=== PATIENT | male | born 1995 | race African-American/Black ===

== ENCOUNTER 2020-01-17 06:36 | Emergency (ER) | payer SELFPAY ==
[~2020-01-17] VITALS: Ht 182.9 cm; Wt 83.9 kg
--- NOTE | 2020-01-17 06:42 | Emergency Room Report ---
History of Present Illness General Chief Complaint: Vomiting Source: Patient Present Illness HPI 24-year-old male with history of cannabinoid hyperemesis syndrome here with hyperemesis. Patient says that he smokes marijuana daily. Says that he has been smoking marijuana knowing that it causes frequent vomiting but is continue to smoke anyway. He has been vomiting many times per day over the past 3 days. He is also experiencing diffuse moderate abdominal pain that is nonfocal. He says that this is usual for his normal cannabinoid hyperemesis syndrome flares. Says pain is 10 out of 10 in intensity and located diffusely and does not otherwise radiate. No headache, vision change, fevers, chills, syncope, presyncope, chest pain, palpitation, shortness of breath, back pain, diarrhea, dysuria. Allergies: Coded Allergies: No Known Allergies (Unverified , 01/17/20) COVID-19 Screening Contact w/high risk pt: No Experienced COVID-19 symptoms?: No COVID-19 Testing performed VULCANIZER: Yes - NOVEMBER 2019 COVID-19 Screening: Negative COVID-19 COVID-19 Testing Source: [facility] Nursing Documentation-[facility] Past Medical History: No History, Except For Hx Gastrointestinal Problems: Yes Review of Systems All Other Systems: negative except mentioned in HPI Physical Exam Vital Signs Date Time Temp Pulse Resp B/P (MAP) Pulse Ox O2 Delivery O2 Flow Rate FiO2 01/17/20 06:33 98.6 100 18 138/88 (105) 99 Room Air Sp02 EP Interpretation: reviewed, normal General Appearance: no apparent distress, alert, non-toxic Head: normocephalic, atraumatic Eyes: bilateral eye normal inspection, bilateral eye PERRL ENT: hearing grossly normal, normal pharynx, no angioedema, normal voice Neck: full range of motion, supple/symm/no masses Respiratory: chest non-tender, lungs clear, normal breath sounds, speaking full sentences Cardiovascular #1: regular rate, rhythm, no edema Cardiovascular #2: 2+ carotid (R), 2+ carotid (L), 2+ radial (R), 2+ radial (L), 2+ dorsalis pedis (R), 2+ dorsalis pedis (L) Gastrointestinal: normal bowel sounds, soft, non-distended, no guarding, no rebound, other - Mild diffuse abdominal tenderness on palpation without any rebound or guarding. Negative Rovsing sign, negative Lux sign Rectal: deferred Genitourinary: normal inspection, no CVA tenderness Musculoskeletal: back normal, normal range of motion, calf tenderness, gait/station normal, non-tender Neurologic: alert, motor strength/tone normal, oriented x3, sensory intact, responsive, speech normal Psychiatric: judgement/insight normal, memory normal, mood/affect normal, no suicidal/homicidal ideation Reflexes: 3+ bicep (R), 3+ bicep (L), 3+ tricep (R), 3+ tricep (L), 3+ knee (R), 3+ knee (L) Lymphatic: no adenopathy Medical Decision Making Diagnostic Impression: Primary Impression: Cannabinoid hyperemesis syndrome Additional Impression: Vomiting ER Course Laboratory Tests Test 01/17/20 06:45 White Blood Count 11.5 K/UL (4.8-10.8) H Red Blood Count 5.27 M/UL (4.70-6.10) Hemoglobin 14.8 G/DL (14.2-18.0) Hematocrit 41.8 % (42.0-52.0) L Mean Corpuscular Volume 79 FL (80-99) L Mean Corpuscular Hemoglobin 28.1 PG (27.0-31.0) Mean Corpuscular Hemoglobin Concent 35.4 G/DL (32.0-36.0) Red Cell Distribution Width 12.7 % (11.6-14.8) Platelet Count 204 K/UL (150-450) Mean Platelet Volume 11.1 FL (6.5-10.1) H Neutrophils (%) (Auto) 80.1 % (45.0-75.0) H Lymphocytes (%) (Auto) 14.2 % (20.0-45.0) L Monocytes (%) (Auto) 4.8 % (1.0-10.0) Eosinophils (%) (Auto) 0.1 % (0.0-3.0) Basophils (%) (Auto) 0.8 % (0.0-2.0) Sodium Level 140 MMOL/L (136-145) Potassium Level 3.2 MMOL/L (3.5-5.1) L Chloride Level 103 MMOL/L (98-107) Carbon Dioxide Level 28 MMOL/L (21-32) Anion Gap 9 mmol/L (5-15) Blood Urea Nitrogen 18 mg/dL (7-18) Creatinine 1.1 MG/DL (0.55-1.30) Estimated Glomerular Filtration Rate > 60 mL/min (>60) Glucose Level 114 MG/DL (74-106) H Calcium Level 9.6 MG/DL (8.5-10.1) Total Bilirubin 0.6 MG/DL (0.2-1.0) Aspartate Amino Transferase (AST) 21 U/L (15-37) Alanine Aminotransferase (ALT) 35 U/L (12-78) Alkaline Phosphatase 64 U/L (46-116) Total Protein 8.5 G/DL (6.4-8.2) H Albumin 4.5 G/DL (3.4-5.0) Globulin 4.0 g/dL Albumin/Globulin Ratio 1.1 (1.0-2.7) Lipase 78 U/L (73-393) 24-year-old male here with vomiting. Patient says that he is a heavy marijuana smoker and says that he has cannabinoid hyperemesis syndrome. He was advised multiple times to abstain from smoking marijuana. Patient was hemodynamically stable and had a largely benign physical examination. CBC unremarkable. CMP showed mild hypokalemia with a potassium of 3.4. Potassium was repleted in the emergency department. He was given 2 L of IV normal saline and 4 mg of Zofran IV. He had resolution of his symptoms. He was tolerating p.o. in the emergency department. He was given a prescription for Zofran and told to follow-up with his primary care provider. Discharged in stable condition. Last Vital Signs Date Time Temp Pulse Resp B/P (MAP) Pulse Ox O2 Delivery O2 Flow Rate FiO2 01/17/20 06:33 98.6 100 18 138/88 (105) 99 Room Air Scripts Ondansetron Odt* (ZOFRAN ODT*) 8 Mg Tab.rapdis 8 MG ORAL Q6H PRN for Nausea & Vomiting, #12 TAB Prov: Aquilino Merritt M.D. 01/17/20 Aquilino Merritt M.D. Jan 17, 2020 06:42
[2020-01-17] MEDS ORDERED: Capsaicin 0.075% Cream TOPIC SCH (06:45)
[2020-01-17 06:50] VITALS: BP 117/79
[2020-01-17 07:31] LABS: ANION GAP 9 mmol/L (5-15); BLOOD UREA NITROGEN 18 mg/dL (7-18); CALCIUM 9.6 MG/DL (8.5-10.1); CARBON DIOXIDE 28 MMOL/L (21-32); CHLORIDE 103 MMOL/L (98-107); CREATININE 1.1 MG/DL (0.55-1.30); POTASSIUM 3.2 MMOL/L (3.5-5.1); SODIUM 140 MMOL/L (136-145)
[2020-01-17 07:35] LABS: ALANINE AMINOTRANSFERASE 35 U/L (12-78); ALBUMIN 4.5 G/DL (3.4-5.0); ALBUMIN/GLOBULIN RATIO 1.1 (1.0-2.7); ALKALINE PHOSPHATASE 64 U/L (46-116); ASPARTATE AMINO TRANSFERASE 21 U/L (15-37); BILIRUBIN,TOTAL 0.6 MG/DL (0.2-1.0)
[2020-01-17 07:43] LABS: BASOPHILS % (AUTO) 0.8 % (0.0-2.0); EOSINOPHILS % (AUTO) 0.1 % (0.0-3.0); HEMATOCRIT 41.8 % (42.0-52.0); HEMOGLOBIN 14.8 G/DL (14.2-18.0); LYMPHOCYTES % (AUTO) 14.2 % (20.0-45.0); MEAN CORPUSCULAR VOLUME 79 FL (80-99); MONOCYTES % (AUTO) 4.8 % (1.0-10.0); NEUTROPHILS % (AUTO) 80.1 % (45.0-75.0); PLATELET COUNT 204 K/UL (150-450); RED BLOOD COUNT 5.27 M/UL (4.70-6.10); RED CELL DISTRIBUTION WIDTH 12.7 % (11.6-14.8); WHITE BLOOD COUNT 11.5 K/UL (4.8-10.8)
[2020-01-17] MEDS ORDERED: ZOFRAN ODT8 MG ORAL (07:55)
[2020-01-17 08:09] VITALS: BP 117/79
== END 2020-01-17 08:09 | disposition home or self-care (01) ==
LOC: EDBD 06:36 → EMR 07:15
DX: F12.188 Cannabis abuse with other cannabis-induced disorder (principal); R11.11 Vomiting without nausea
CPT/HCPCS: 80053; 83690; 85025; 96361; 96374; 99284; J2405; J7030; J8499